=== PATIENT | male | born 1975 | race Caucasian/White ===

== ENCOUNTER 2017-07-28 12:50 | Emergency (ER) | payer BC ==
[2017-07-28 13:03] VITALS: BP 125/86
--- NOTE | 2017-07-28 15:21 | Emergency Department Report ---
- General Chief Complaint: Upper Respiratory Infection Stated Complaint: HIGH FEVER Time Seen by Provider: 07/28/17 14:47 Source: patient Mode of arrival: Ambulatory Limitations: Language Barrier - History of Present Illness Initial Comments: This is a 41-year-old male nontoxic, well nourished in appearance, no acute signs of distress presents to the ED with c/o of chills, body aches, frontal sinus pain, nonproductive cough, rhinnorhea, and nasal congestion x 1 week. Patient describes pain as aching with level of 8/10. Patient denies any nausea, vomiting, stiff neck, headache, fever, chest pain, shortness of breathe, difficulty breathing, numbness, tingling, or blurry vision. Patient denies recent travels, long car rides, or recent hospital stays. Patient denies any allergies or PMH. MD Complaint: cough, rhinorrhea, nasal congestion, sinus pain -: week(s) (1) Severity: mild Severity scale (0 -10): 8 Quality: aching Consistency: constant Improves With: nothing Worsens With: nothing Associated Symptoms: chills, rhinorrhea, nasal congestion, cough. denies: fever , myalgias, diaphoresis, headache, sore throat, stiff neck, chest pain, shortness of breath, abdominal pain, nausea, vomiting, diarrhea, dysuria, rash, confusion, right sweats, weight loss, epistaxis, hoarseness, ear pain Treatments Prior to Arrival: none - Related Data Previous Rx's Medication Instructions Recorded Last Taken Type Amoxicillin/K Clav Tab [Augmentin 1 tab PO Q12HR 20 Days tab 07/28/17 Unknown Rx 875 mg] Benzonatate [Tessalon Perle] 100 mg PO Q8H #15 capsule 07/28/17 Unknown Rx Allergies Allergy/AdvReac Type Severity Reaction Status Date / Time No Known Allergies Allergy Unverified 07/28/17 12:59 ED Review of Systems ROS: Stated complaint: HIGH FEVER Other details as noted in HPI Constitutional: denies: chills, fever Eyes: denies: eye pain, eye discharge, vision change ENT: denies: ear pain, throat pain Respiratory: cough. denies: shortness of breath, wheezing Cardiovascular: denies: chest pain, palpitations Endocrine: no symptoms reported Gastrointestinal: denies: abdominal pain, nausea, diarrhea Genitourinary: denies: urgency, dysuria Musculoskeletal: denies: back pain, joint swelling, arthralgia Skin: denies: rash, lesions Neurological: denies: headache, weakness, paresthesias Psychiatric: denies: anxiety, depression Hematological/Lymphatic: denies: easy bleeding, easy bruising ED Past Medical Hx - Past Medical History Previous Medical History?: No - Surgical History Past Surgical History?: Yes Hx Appendectomy: Yes - Social History Smoking Status: Never Smoker Substance Use Type: None - Medications Home Medications: Home Medications Medication Instructions Recorded Confirmed Last Taken Type Amoxicillin/K Clav Tab [Augmentin 1 tab PO Q12HR 20 Days tab 07/28/17 Unknown Rx 875 mg] Benzonatate [Tessalon Perle] 100 mg PO Q8H #15 capsule 07/28/17 Unknown Rx ED Physical Exam - General Limitations: No Limitations, Language Barrier General appearance: alert, in no apparent distress - Head Head exam: Present: atraumatic, normocephalic, normal inspection - Eye Eye exam: Present: normal appearance, PERRL, EOMI. Absent: scleral icterus, conjunctival injection, nystagmus, periorbital swelling, periorbital tenderness Pupils: Present: normal accommodation - ENT ENT exam: Present: normal exam, normal orophraynx, mucous membranes moist, TM's normal bilaterally, normal external ear exam - Neck Neck exam: Present: normal inspection, full ROM. Absent: tenderness, meningismus, lymphadenopathy, thyromegaly - Respiratory Respiratory exam: Present: normal lung sounds bilaterally. Absent: respiratory distress, wheezes, rales, rhonchi, stridor, chest wall tenderness, accessory muscle use, decreased breath sounds, prolonged expiratory - Cardiovascular Cardiovascular Exam: Present: regular rate, normal rhythm, normal heart sounds. Absent: irregular rhythm, systolic murmur, diastolic murmur, rubs, gallop - GI/Abdominal GI/Abdominal exam: Present: soft, normal bowel sounds. Absent: distended, tenderness, guarding, rebound, rigid, diminished bowel sounds - Rectal Rectal exam: Present: deferred - Extremities Exam Extremities exam: Present: normal inspection, full ROM, normal capillary refill. Absent: tenderness, pedal edema, joint swelling, calf tenderness - Back Exam Back exam: Present: normal inspection, full ROM. Absent: tenderness, CVA tenderness (R), CVA tenderness (L), muscle spasm, paraspinal tenderness, vertebral tenderness, rash noted - Neurological Exam Neurological exam: Present: alert, oriented X3, CN II-XII intact, normal gait, reflexes normal - Psychiatric Psychiatric exam: Present: normal affect, normal mood - Skin Skin exam: Present: warm, dry, intact, normal color. Absent: rash - Other Other exam information: Positive frontal sinus tenderness. ED Course Vital Signs 07/28/17 12:59 Temperature 98.4 F Pulse Rate 103 H Respiratory 18 Rate Blood Pressure 125/86 O2 Sat by Pulse 97 Oximetry - Reevaluation(s) Reevaluation #1: 07/28/17 15:23 Patient is speaking in full sentences with no signs of distress noted. ED Medical Decision Making - Medical Decision Making This is a 41-year-old male that presents with sinusitis and influenza. Patient is stable and was examined by me. Xray of chest has been obtained and dictated by radiologist with normal exam. Influenza obtained and positive. Due to the symptoms of positive frontal sinus tenderness and cough and rhinorrhea x1 week , i will treat patient is augmentin. Patient was notified of xray results with no further questions noted by the patient. Patient is d/c with augmentin and Tessalon Perles. Patient was instructed Follow-up with a primary care doctor in 3-5 days or if symptoms worsen and continue return to emergency room as soon as possible. At time time of discharge, the patient does not seem toxic or ill in appearance. No acute signs of distress noted. Patient agrees to discharge treatment plan of care. No further questions noted by the patient. Critical care attestation.: If time is entered above; I have spent that time in minutes in the direct care of this critically ill patient, excluding procedure time. ED Disposition Clinical Impression: Influenza Sinusitis Qualifiers: Sinusitis location: frontal Chronicity: acute Recurrence: non-recurrent Qualified Code(s): J01.10 - Acute frontal sinusitis, unspecified Disposition: - TO HOME OR SELFCARE Is pt being admited?: No Does the pt Need Aspirin: No Condition: Stable Instructions: Benzonatate (By mouth), Amoxicillin/Clavulanate Potassium (By mouth), Sinusitis (ED), Influenza (ED) Additional Instructions: Follow-up with a primary care doctor in 3-5 days or if symptoms worsen and continue return to emergency room as soon as possible. Increase hydration and rest Prescriptions: Amoxicillin/K Clav Tab [Augmentin 875 mg] 1 tab PO Q12HR 20 Days tab Benzonatate [Tessalon Perle] 100 mg PO Q8H #15 capsule Referrals: PRIMARY CARE, [Primary Care Provider] - 3-5 Days CATRACHITO XIAO MD [Staff Physician] - 3-5 Days [facility] [Outside] - 3-5 Days [facility] [Outside] - 3-5 Days Forms: Work/School Release Form(ED)
--- NOTE | 2017-07-28 15:28 | XRay Report ---
ROUTINE CHEST, TWO VIEWS: HISTORY: Cough. The trachea, heart, mediastinal contour, lung grover and bony thorax are unremarkable. IMPRESSION: Unremarkable chest x-ray.
== END 2017-07-28 16:17 | disposition home or self-care (01) ==
LOC: ED 12:50
DX: J01.10 Acute frontal sinusitis, unspecified (principal); J11.1 Influenza due to unidentified influenza virus with other respiratory manifestations
CPT/HCPCS: 71020; 87400; 99283

== ENCOUNTER 2017-11-18 23:56 | Emergency (ER) | payer BC | END 2017-11-18 23:57 | disposition left against medical advice (07) | LOC: ED 23:56 | DX: R11.2 Nausea with vomiting, unspecified (principal); Z53.21 Procedure and treatment not carried out due to patient leaving prior to being seen by health care provider ==